=== PATIENT | female | born 1955 | race Caucasian/White ===

== ENCOUNTER 2018-06-18 05:57 | Emergency (ER) | payer OTHER ==
[~2018-06-18] VITALS: Ht 162.6 cm; Wt 55.3 kg
--- OUTSIDE RECORDS SUMMARY | ~2018-06-18 | XMS ---
Demographics + + + | Address | [address] | | | [place] [address] | + + + | Preferred Language | Unknown | + + + | Marital Status | Unknown | + + + | Baptist Affiliation | Unknown | + + + | Race | Unknown | + + + | Ethnic Group | Unknown | + + + Author + + + | Author | [facility] | + + + | Organization | [facility] | + + + | Address | [address] | | | [place] [address] | + + + | Phone | | + + + Care Team Providers + + + + | Care Director Of [facility] Name | Role | Phone | + + + + Unavailable | Unavailable | + + + + PROBLEMS + + + + + + +---------+ | Type | Condition | ICD9-CM | EWC38-HR | Onset | Condition | SNOMED | | | | Code | Code | Dates | Status | Code | + + + + + + +---------+ | Assessment | Eye | H57.8 | | May, | Active | | | | irritation | | | 2016 | | | + + + + + + +---------+ ALLERGIES + + + + +---------+ | Substance | Reaction | Event Type | Date | Status | + + + + +---------+ | N.K.D.A. | Unknown | Non Drug | May, | Unknown | | | | Allergy | | | + + + + +---------+ SOCIAL HISTORY No smoking Hx information available PLAN OF CARE VITAL SIGNS + + + + | Height | 63.5 in | 2016-06-20 | + + + + | Weight | 114.4 lbs | 2016-06-20 | + + + + | BMI | 19.94 kg/m2 | 2016-06-20 | + + + + | Heart Rate | 79 /min | 2016-06-20 | + + + + | Blood pressure systolic | 107 mm Hg | 2016-06-20 | + + + + | Blood pressure diastolic | 70 mm Hg | 2016-06-20 | + + + + MEDICATIONS + + + + + + + +--------+ | Medicati | Instruct | Dosage | Frequenc | Start | End Date | Duration | Status | | on | ions | | y | Date | | | | + + + + + + + +--------+ | Paroxeti | Orally | 1 tablet | 24h | Nov, | | 30 days | Active | | ne HCl | Once a | | | 2015 | | | | | 20 MG | day | | | | | | | + + + + + + + +--------+ RESULTS No Results PROCEDURES + + + + + | Procedure | Date Ordered | Related Diagnosis | Body Site | + + + + + | Est Level II | June 20, 2016 | | | | Limited | | | | + + + + + IMMUNIZATIONS No Known Immunizations"
--- OUTSIDE RECORDS SUMMARY | ~2018-06-18 | XMS | Clinical Summary ---
Demographics + + + | Address | [address] | | | [place] [address] | + + + | Home Phone | | + + + | Preferred Language | Unknown | + + + | Marital Status | Unknown | + + + | Anabaptism Affiliation | Unknown | + + + | Race | Unknown | + + + | Ethnic Group | Unknown | + + + Author + + + | Author | [facility] | | | and Casa | + + + | Organization | [facility] | | | and [place] | + + + | Address | Unknown | + + + | Phone | Unavailable | + + + Care Team Providers + +------+ + | Care Escort Patients Name | Role | Phone | + [...]
--- OUTSIDE RECORDS SUMMARY | ~2018-06-18 | XMS | Clinical Summary ---
Demographics + + + | Address | [address] | | | [place] [address] | + + + | Home Phone | | + + + | Preferred Language | Unknown | + + + | Marital Status | Unknown | + + + | Muslim Affiliation | Unknown | + + + | Race | Unknown | + + + | Ethnic Group | Unknown | + + + Author + + + | Author | [facility] | | | and Casa | + + + | Organization | [facility] | | | and [place] | + + + | Address | Unknown | + + + | Phone | Unavailable | + + + Care Team Providers + +------+ + | Care Fleece Tier Name | Role | Phone | + [...]
[~2018-06-18 05:57] MED LIST: PAXIL20 MG
[2018-06-18] MEDS ORDERED: NORCO 5-325 TA1 EACH PO (06:58)
[2018-06-18] MEDS ORDERED: CYCLOBENZAPRINE10 MG PO (06:58)
== END 2018-06-18 09:05 | disposition home or self-care (01) ==
LOC: ED 05:57
DX: M25.511 Pain in right shoulder (principal); Z87.891 Personal history of nicotine dependence
CPT/HCPCS: 96374; 99283-25; J1170; J1885

== ENCOUNTER 2018-06-19 06:00 | Emergency (ER) | payer OTHER ==
[~2018-06-19] VITALS: Ht 162.6 cm; Wt 55.3 kg
--- OUTSIDE RECORDS SUMMARY | ~2018-06-19 | XMS | Clinical Summary ---
Demographics + + + | Address | [address] | | | [place] [address] | + + + | Home Phone | | + + + | Preferred Language | Unknown | + + + | Marital Status | Unknown | + + + | Samaritan Affiliation | Unknown | + + + | Race | Unknown | + + + | Ethnic Group | Unknown | + + + Author + + + | Author | [facility] | | | and Casa | + + + | Organization | [facility] | | | and [place] | + + + | Address | Unknown | + + + | Phone | Unavailable | + + + Care Team Providers + +------+ + | Care Studio Operation Engineer Name | Role | Phone | + +------+ + PP | Unavailable | + +------+ + Allergies Not on File Medications Not on file Active Problems Not on file Social History + +-------+ +--------+------+ | Tobacco Use | Types | Packs/Day | Years | Date | | | | | Used | | + +-------+ +--------+------+ | Never Assessed | | | | | + +-------+ +--------+------+ + + + | Sex Assigned at | Date Recorded | | | | + + + | Not on file | | + + + + + + + | Job Start Date | Occupation | Industry | + + + + | Not on file | Not on file | Not on file | + + + + + + + + | Travel History | Travel Start | Travel End | + + + + + + | No recent travel history available. | + + Plan of Treatment + + + + + | Health Maintenance | Due Date | Last Done | Comments | + + + + + | Vaccine: | | | | | Dtap/Tdap/Td (1 - | 5 | | | | Tdap) | | | | + + + + + | Cervical Cancer | | | | | Screening (Pap) | 6 | | | + + + + + | Vaccine: Zoster (1 | | | | | of 2) | 6 | | | + + + + + | Vaccine: Influenza | | | | | (Season Ended) | 9 | | | + + + + + Results Not on filefrom Last 3 Months"
--- OUTSIDE RECORDS SUMMARY | ~2018-06-19 | XMS | Clinical Summary ---
Demographics + + + | Address | [address] | | | [place] [address] | + + + | Home Phone | | + + + | Preferred Language | Unknown | + + + | Marital Status | Unknown | + + + | Zoroastrian Affiliation | Unknown | + + + | Race | Unknown | + + + | Ethnic Group | Unknown | + + + Author + + + | Author | [facility] | | | and Casa | + + + | Organization | [facility] | | | and [place] | + + + | Address | Unknown | + + + | Phone | Unavailable | + + + Care Team Providers + +------+ + | Care Traffic Warehouse Supervisor Name | Role | Phone | + [...]
[~2018-06-19 06:00] MED LIST changes: +CYCLOBENZAPRINE10 MG PO; +NORCO 5-325 TA1 EACH PO
--- OUTSIDE RECORDS SUMMARY | 2018-06-19 06:04 | XMS ---
PreManage Notification: LEI EUCEDA Security Screening Tech Events No recent Security Events currently on file CRITERIA MET - [facility] - 2 Visits in 30 Days CARE PROVIDERS There are no care providers on record at this time. Kika has no Care Guidelines for this patient. Jermain VISIT COUNT (12 MO.) [address] [facility] [place] TOTAL 2 NOTE: Visits indicate total known visits. ED/[facility] VISIT TRACKING (12 MO.) 06/19/2018 06:[address] [facility] TYPE: Emergency COMPLAINT: - PAIN 06/18/2018 05:58 [facility] [place] TYPE: Emergency COMPLAINT: - NAUSEA INPATIENT VISIT TRACKING (12 MO.) No inpatient visits to display in this time frame [email or web address]
== END 2018-06-19 06:20 | disposition left against medical advice (07) ==
LOC: ED 06:00
DX: M54.9 Dorsalgia, unspecified (principal); Z53.21 Procedure and treatment not carried out due to patient leaving prior to being seen by health care provider

== ENCOUNTER 2021-05-16 06:30 | Day surgery (SDC) | payer MEDICARE, BC ==
[~2021-05-16] VITALS: Ht 162.6 cm; Wt 53.1 kg
[2021-05-16] MEDS ORDERED: MELOXICAM7.5 MG PO (06:54)
--- NOTE | 2021-05-16 08:16 | NUR ---
05/16/21 0816 Monique Machado 0804-PATIENT ARRIVED TO PACU ON 3L NC PLACED ON 2L. RR 7. PATIENT REACTIVE TO VERBAL STIMULI OPENING EYES DENIES PAIN OR NAUSEA. LAYING LEFT LATERAL. IVF INFUSING. 0810-PATIENT SLEEPING APNEIC AROUSES EASILY TAKES DEEP BREATHES. 2L NC 0815-PATIENT AWAKE DROWSY DENIES PAIN OR NAUSEA. PASSING GAS. IVF INFUSING. RR 12 WHILE AWAKE.
--- NOTE | 2021-05-16 10:01 | OR ---
[facility] [address], [place] [address] Signed DATE OF OPERATION: 05/16/2021 SURGEON: Marissa Iniguez MD PREOPERATIVE DIAGNOSES: 1. Father with colon cancer in his 60s. 2. Long redundant colon. 3. Minimal internal hemorrhoids. POSTOPERATIVE DIAGNOSES: 1. 4 mm polyp at 20 cm/sigmoid colon. 2. Long redundant colon. 3. Minimal internal hemorrhoids. 4. Single moderate-sized diverticulum, distal right colon. PROCEDURE: Colonoscopy with hot biopsy. ESTIMATED BLOOD LOSS: None. INDICATIONS: Kanwal is a 66-year-old female asked to see me for followup colonoscopy. Her father had been diagnosed with colon cancer in his 60s. Kanwal had her initial colonoscopy in 2005 at the age of 50. She has a long redundant colon. She generally does well with Versed and fentanyl. She returned in 2010 at the age of 55. Again, generally did well with Versed and fentanyl. She has a little bit internal hemorrhoid tissue. She always tells me her dislike for colonoscopies. She is aware of Cologuard testing. We did review that together in the office. She is welcome to review that again with her primary care provider. Currently, she has no lower GI complaints. She decided to proceed with an additional colonoscopy. She is aware of that test. There is risk including, but not limited to gas bloating, crampy abdominal pain, bleeding, perforation requiring surgery, and missed diagnosis. She is aware of the need for IV conscious sedation. She had expressed understanding and wished to proceed. PROCEDURE NOTE: Kanwal was taken into our endoscopy suite and placed in the left lateral decubitus position. She was given a total of 150 mcg fentanyl and 6 mg of Versed. We find Kanwal is easy to sedate, but she wakes up very quickly. She actually was awake several times moaning and talking just a bit. We would stop and suck out the gas and provide Electronically Signed By: MARISSA INGIUEZ MD 05/16/21 1001 PATIENT NAME: KANWAL EUCEDA OPERATIVE REPORT DATE OF : 55 REPORT #: [id number] PHYSICIAN: MARISSA INIGUEZ MD PCP: SILVIO AVINA PAC REPORT IS CONFIDENTIAL AND NOT TO BE RELEASED WITHOUT AUTHORIZATION [facility] [address], [place] [address] Signed additional sedation. Also, Kanwal is quite thin and therefore her colon is also quite thin. She also has a long redundant colon. It makes the colonoscopy technically much more difficult when she is not fully sedated. In that regard, she strongly should consider monitored anesthesia care with propofol in the future for her own comfort and safety. We slowly but surely passed the scope around the hepatic flexure. It took a few extra minutes then to get down into the cecum itself. She is so thin and we could actually watch the tip of our colonoscope with the light passed through her colon through the abdominal wall. Her prep was quite excellent as always. We could easily see the appendiceal orifice and ileocecal valve. The scope was then slowly withdrawn. She had a single moderate-sized diverticulum in her distal right colon. We found just a tiny 3 or 4 mm polyp in the distal sigmoid colon. It was easily removed with the help of hot biopsy forceps. The rectum was unremarkable. Upon retroflexion of the scope, she once again has very minimal internal hemorrhoid tissue. After this, the gas was suctioned out and the colonoscope removed. Overall, Kanwal tolerated the procedure. RECOMMENDATIONS: I will see Kanwal back in my office in 7 to 10 days to review her results. Again, she might consider monitored anesthesia care in the future as described above. Marissa Iniguez MD ALB/MODL /[id number] cc: WALLY Bar MD Copies: MARISSA INIGUEZ MD ~ Electronically Signed By: MARISSA INIGUEZ MD 05/16/21 1001 PATIENT NAME: KANWAL EUCEDA OPERATIVE REPORT DATE OF : 55 REPORT #: [id number] PHYSICIAN: MARISSA INIGUEZ MD PCP: SILVIO AVINA PAC REPORT IS CONFIDENTIAL AND NOT TO BE RELEASED WITHOUT AUTHORIZATION
--- NOTE | 2021-05-17 18:59 | PATH ---
[facility] [address] [place], [place] [address] Signed SPECIMEN(S): A SIGMOID POLYP AT 20 CM SPECIMEN SOURCE: A. SIGMOID POLYP AT 20 CM CLINICAL HISTORY: Colonoscopy. Family history of colon CA. Last scope 2010 "unremarkable." Postop: Polyp, hemorrhoids. FINAL PATHOLOGIC DIAGNOSIS: Colon, sigmoid polyp at 20 cm, polypectomy: - Hyperplastic polyp. - Negative for dysplasia or malignancy. NAL:slc:C_NR MICROSCOPIC EXAMINATION: Histologic sections of all submitted blocks are examined by light microscopy. These findings, together with the gross examination, support the pathologic diagnosis. GROSS DESCRIPTION: The specimen, labeled "TC, 20 cm distal sigmoid," is received in formalin and consists of one fragment of pink-villatoro tissue (0.2 cm in greatest dimension). The specimen is submitted entirely in cassette (A1). (under the direct supervision of a pathologist) The Gross Description was prepared using a voice recognition system. The report was reviewed for accuracy; however, sound-alike word errors, addition and/or deletions may occur. If there is any question about this report, please contact Client Services. PERFORMING LABORATORY: The technical component was performed by [facility], [address] [place] [id number] (Reflexologist: Carla García MD; CLIA# [id number]). [facility], [address] [address] (CLIA# [id number]). Diagnostician: Felecia Lundy MD Pathologist Electronically Signed 05/17/2021 PATIENT NAME: LEI EUCEDA PATHOLOGY DATE OF : 55 REPORT #: [id number] PHYSICIAN: [facility] PCP: SILVIO AVINA PAC REPORT IS CONFIDENTIAL AND NOT TO BE RELEASED WITHOUT AUTHORIZATION [facility] [address] [place] [address] Signed Copies: ~ PATIENT NAME: LEI EUCEDA PATHOLOGY DATE OF : 55 REPORT #: [id number] PHYSICIAN: [facility] PCP: SILVIO AVINA PAC REPORT IS CONFIDENTIAL AND NOT TO BE RELEASED WITHOUT AUTHORIZATION
== END 2021-05-16 09:00 | disposition home or self-care (01) ==
LOC: DS 06:30 → OPS 06:45 → DS 07:30 → OPS 07:30 → DS 09:00
PROVIDERS: ATTEND Colon & Rectal Surgery
PROC: 0DBN8ZX Excision of Sigmoid Colon, Via Natural or Artificial Opening Endoscopic, Diagnostic (ICD-10-PCS; principal; 2021-05-16 07:30)
DX: K63.5 Polyp of colon (principal); Q43.8 Other specified congenital malformations of intestine; K64.8 Other hemorrhoids; E03.9 Hypothyroidism, unspecified; M19.90 Unspecified osteoarthritis, unspecified site; F41.9 Anxiety disorder, unspecified; E78.00 Pure hypercholesterolemia, unspecified; Z80.0 Family history of malignant neoplasm of digestive organs
CPT/HCPCS: 99153; G0500; J2250; J3010; J7121

== ENCOUNTER 2022-10-09 09:10 | Emergency (ER) | payer MEDICARE, BC ==
[~2022-10-09] VITALS: Ht 162.6 cm; Wt 55.1 kg
[~2022-10-09 09:10] MED LIST changes: +MELOXICAM7.5 MG PO
--- OUTSIDE RECORDS SUMMARY | 2022-10-09 09:12 | XMS ---
PreManage Notification: LEI EUCEDA Security Gas Meter [employer]ver Events No recent Security Events currently on file CRITERIA MET - Group Notification CARE PROVIDERS SILVIO AVINA Physician Sales Representative Electric Service Current PHONE: Unknown VANDANA ROGERS Internal Medicine 06/21/2018-Current PHONE: Unknown Kika has no Care Guidelines for this patient. Care History Medical/Surgical 06/21/2018 [facility] - Patient is currently established with [facility]. If patient is seen in the ED during business hours. Please contact CHWs at [facility]. Care Recommendation: This patient has had 5 or more Emergency Department visits in the last 12 months.\T\nbsp; Patient requires education on the scope and purpose of the ED as an acute care provider not a Primary Care Provider and should not be utilized for chronic conditions.\T\nbsp; These are guidelines and the provider should exercise clinical judgment when providing care. E.D. VISIT COUNT (12 MO.) 1 [facility] TOTAL 1 NOTE: Visits indicate total known visits. ED/UCC VISIT TRACKING (12 MO.) 10/09/2022 09:10 [facility] [place] TYPE: Emergency COMPLAINT: - DISSY, DOUBLE VISION, NAUSEA, SHAKY INPATIENT VISIT TRACKING (12 MO.) No inpatient visits to display in this time frame [email or web address]
[2022-10-09] MEDS ORDERED: ZOLPIDEM TARTRA10 MG PO (09:29)
[2022-10-09 09:39] LABS: BASOPHILS 0.2 % (0-2); EOSINOPHILS 0.6 % (0-6); HEMATOCRIT 41.7 % (35.0-50.0); HEMOGLOBIN 13.9 g/dL (12.0-18.0); LYMPHOCYTES 23.3 % (24-44); MCH 31.4 (27-36); MCHC 33.4 g/dl (30-36); MCV 94.1 fl (81-99); MONOCYTES 6.5 % (0-12); NEUTROPHILS 69.4 % (39-80); PLATELET COUNT 276 K/uL (140-440); RBC 4.43 M/ul (4.3-5.7); RDW 13.2 (10.5-15.0)
[2022-10-09 09:53] LABS: ALBUMIN/GLOBULIN RATIO 1.33 (1.1-2.4); ANION GAP 11.9 (7-21); BILIRUBIN, TOTAL 0.9 ng/dL (0.2-1.0); BUN/CREATININE RATIO 22.36 (6.0-28.6); CALCIUM 9.3 mg/dL (8.5-10.1); CREATININE, SERUM 0.76 mg/dL (0.55-1.02); POTASSIUM 3.9 mmol/L (3.5-5.1)
[2022-10-09] MEDS ORDERED: MECLIZINE HCL25 MG PO (11:21)
[2022-10-09] MEDS ORDERED: DEBROX SWIMMER'30 ML AS (11:21)
[2022-10-09 11:27] VITALS: BP 155/85
--- NOTE | 2022-10-09 20:29 | EKG ---
[facility] [address] [facility] [place] [address] Signed Normal sinus rhythm Normal ECG No previous ECGs available Confirmed by Chastity Cheung MD () on 10/09/2022 8:28:58 PM Electronically Signed By: CHASTITY CHEUNG MD 10/09/222028 PATIENT NAME: LEI EUCEDA Electrocardiogram DATE OF : 55 PHYSICIAN: CHASTITY CHEUNG MD REPORT #: [id number] REPORT IS CONFIDENTIAL AND NOT TO BE RELEASED WITHOUT AUTHORIZATION
== END 2022-10-09 11:29 | disposition home or self-care (01) ==
LOC: ED 09:10
PROVIDERS: Student in an Organized Health Care Education/Training Program
DX: R42 Dizziness and giddiness (principal); Z87.891 Personal history of nicotine dependence; Z79.899 Other long term (current) drug therapy
CPT/HCPCS: 36415; 80053; 85025; 93005; 93010; 99284-25

== ENCOUNTER 2023-11-18 18:20 | Emergency (ER) | payer OTHER, MEDICARE, BC ==
[~2023-11-18] VITALS: Ht 162.6 cm; Wt 55.0 kg
[~2023-11-18 18:20] MED LIST changes: +DEBROX SWIMMER'30 ML AS; +MECLIZINE HCL25 MG PO; +ZOLPIDEM TARTRA10 MG PO
[2023-11-18] MEDS ORDERED: HYDROmorphone HCL 1 MG/ML SYR IV PRN (19:00)
[2023-11-18] MEDS ORDERED: HYDROCODON-ACE1 EA10 PO (19:37)
[2023-11-18] MEDS ORDERED: HYDROCODONE BIT/ACETAMINOPHEN 5/325 MG 1 TAB HOME.PACK PO PRN (19:45)
[2023-11-18 20:12] VITALS: BP 143/76
== END 2023-11-18 20:15 | disposition home or self-care (01) ==
LOC: ED 18:20
DX: S52.512A Displaced fracture of left radial styloid process, initial encounter for closed fracture (principal); S52.612A Displaced fracture of left ulna styloid process, initial encounter for closed fracture; W01.0XXA Fall on same level from slipping, tripping and stumbling without subsequent striking against object, initial encounter; M19.90 Unspecified osteoarthritis, unspecified site; Z87.891 Personal history of nicotine dependence; Z79.1 Long term (current) use of non-steroidal anti-inflammatories (NSAID); Z79.899 Other long term (current) drug therapy
CPT/HCPCS: 29125; 73110; 99283-25; A9270; J1170

== ENCOUNTER 2023-11-20 08:10 | Day surgery (SDC) | payer MEDICARE, BC ==
[~2023-11-20 08:10] MED LIST changes: +CEFAZOLIN SODIUM 2 GM/20 ML SYR IV SCH; +HYDROCODON-ACE1 EA10 PO; +IBLOOD GLUCOSE TEST STRIP 1 EA TEST VI PRN; +LACTATED RINGER'S 1,000 ML IV SCH; +LIDOCAINE HCL 1% 5 ML SDV INJ ONE
[2023-11-20 08:46] VITALS: BP 151/85
[2023-11-20 09:01] LABS: BASOPHILS 0.3 % (0-2); EOSINOPHILS 0.5 % (0-6); HEMATOCRIT 40.5 % (35.0-50.0); HEMOGLOBIN 13.9 g/dL (12.0-18.0); LYMPHOCYTES 16.3 % (24-44); MCH 31.9 (27-36); MCHC 34.3 g/dl (30-36); MONOCYTES 9.2 % (0-12); NEUTROPHILS 73.7 % (39-80); PLATELET COUNT 334 K/uL (140-440); RBC 4.35 M/ul (4.3-5.7); RDW 12.7 (10.5-15.0)
[2023-11-20 09:14] LABS: ALBUMIN 4.1 g/dL (3.4-5.0); ALBUMIN/GLOBULIN RATIO 1.24 (1.1-2.4); ANION GAP 13.4 (7-21); BILIRUBIN, TOTAL 1.2 ng/dL (0.2-1.0); BUN/CREATININE RATIO 13.75 (6.0-28.6); CALCIUM 9.5 mg/dL (8.5-10.1); CREATININE, SERUM 0.8 mg/dL (0.55-1.02); POTASSIUM 4.4 mmol/L (3.5-5.1); PROTEIN, TOTAL 7.4 g/dL (6.4-8.2)
[2023-11-20] MEDS ORDERED: SODIUM CHLORIDE 0.9% 20 ML IV ONE (10:52)
[2023-11-20] MEDS ORDERED: LIDOCAINE HCL 2% 5 ML SDV ONE (10:52)
[2023-11-20] MEDS ORDERED: KETOROLAC TROMETHAMINE 30 MG/ML VIAL ONE (10:52)
[2023-11-20] MEDS ORDERED: propofoL 200 MG/20 ML VIAL ONE (10:52)
[2023-11-20] MEDS ORDERED: Ropivacaine HCl 0.5% 30 ML VIAL ONE (10:52)
[2023-11-20] MEDS ORDERED: DEXAMETHASONE SOD PHOS 4 MG/ML VIAL ONE (10:52)
[2023-11-20] MEDS ORDERED: ondansetron HCL 4 MG/2 ML VIAL ONE (10:52)
[2023-11-20] MEDS ORDERED: MIDAZOLAM HCL 2 MG/2 ML VIAL ONE (10:53)
[2023-11-20] MEDS ORDERED: HYDROCODONE/ACETA 7.5/325 TAB PO PRN (11:15)
[2023-11-20] MEDS ORDERED: HYDROCODON-ACE1 EA11 PO (12:07)
--- NOTE | 2023-11-20 12:16 | NUR ---
11/20/23 1216 Alan Pagan 1203: PT ARRIVED TO PACU VIA STRETCHER. ON 6L VIA MASK. PT NON AROUSABLE AT THIS TIME. PT HAS DRESSING IN PLACE TO LEFT ARM. DRESSING C/D/I.
[2023-11-20 12:43] VITALS: BP 123/86
--- NOTE | 2023-11-20 22:17 | EKG ---
[facility] [address] [place] [address] Signed Normal sinus rhythm with sinus arrhythmia Normal ECG When compared with ECG of 09-OCT-2022 11:00, No significant change was found Confirmed by Chastity Cheung MD () on 11/20/2023 10:17:25 PM Electronically Signed By: CHASTITY CHEUNG MD 11/20/23 2217 PATIENT NAME: LEI EUCEDA Electrocardiogram DATE OF : 55 PHYSICIAN: CHASTITY CHEUNG MD REPORT #: [id number] REPORT IS CONFIDENTIAL AND NOT TO BE RELEASED WITHOUT AUTHORIZATION
--- NOTE | 2023-11-21 19:49 | OR ---
[facility] [address] [facility] [place], [place] [address] Signed DATE OF OPERATION: 11/20/2023 SURGEON: Rashel De Anda MD PREOPERATIVE DIAGNOSIS: Displaced comminuted left distal radius fracture. POSTOPERATIVE DIAGNOSIS: Displaced comminuted left distal radius fracture. PROCEDURE PERFORMED: Closed reduction, percutaneous pinning of left distal radius. PEDIATRIC DENTAL HYGIENIST: None. ANESTHESIA: General. BLOOD LOSS: Minimal. IMPLANTS: Four 1.6 K-wires. BRIEF HISTORY: Kanwal is a 68-year-old female, who suffered a ground level fall two days ago. She was seen in the emergency room and the ER doctor was uncomfortable performing the reduction. She was seen in the clinic and scheduled for surgery this morning. Risks, benefits, and alternatives were discussed with her and she understood, wished to proceed. PROCEDURE IN DETAIL: Once consent was obtained, she was taken to the operating room. After adequate anesthesia, she was left on the day surgery bed. C-arm was brought in. Closed reduction was performed. The arm was then prepped and draped in a standard sterile fashion. The reduction was improved and a single K-wire was passed from the radial styloid proximally and ulnarly engaging the body of the radius. Next, pin was placed dorsally. The bone was fairly soft, so we placed two more pins both from the radial styloid and the dorsal lip. Good maintenance of reduction was obtained with this. The pins were cut and bent Electronically Signed By: RASHEL DE ANDA MD 11/21/231948 PATIENT NAME: KANWAL EUCEDA OPERATIVE REPORT DATE OF : 55 REPORT #: [id number] PHYSICIAN: RASHEL DE ANDA MD PCP: SILVIO AVINA PAC REPORT IS CONFIDENTIAL AND NOT TO BE RELEASED WITHOUT AUTHORIZATION [address] [facility] [place] [place] [address] Signed and dressed with Allevyn dressing, sterile gauze and a radial gutter splint. She tolerated the procedure well. All sponge, needle, and instrument counts were correct. Rashel De Anda MD BA/KAYLA /[id number] Copies: ~ Electronically Signed By: RASHEL DE ANDA MD 11/21/23 1949 PATIENT NAME: KANWAL EUCEDA OPERATIVE REPORT DATE OF : 55 REPORT #: [id number] PHYSICIAN: RASHEL DE ANDA MD PCP: SILVIO AVINA PAC REPORT IS CONFIDENTIAL AND NOT TO BE RELEASED WITHOUT AUTHORIZATION
== END 2023-11-20 12:55 | disposition home or self-care (01) ==
LOC: DS 08:10
PROVIDERS: ATTEND Specialist
PROC: 0PSJ34Z Reposition Left Radius with Internal Fixation Device, Percutaneous Approach (ICD-10-PCS; principal; 2023-11-20 13:00)
DX: S52.502A Unspecified fracture of the lower end of left radius, initial encounter for closed fracture (principal); M85.80 Other specified disorders of bone density and structure, unspecified site; W18.30XA Fall on same level, unspecified, initial encounter
CPT/HCPCS: 01820; 36415; 64417; 73100; 80053; 85025; 93005; 93010; J1100; J1885; J2001; J2250; J2405; J2704; J2795; J7121